=== PATIENT | female | born 2000 | race Caucasian/White ===

== ENCOUNTER 2022-06-24 10:12 | Emergency (ER) | payer OTHER, SELFPAY ==
[2022-06-24 10:25] VITALS: BP 125/79; PULSE 77; RESP 16; TEMP 37.6; O2SAT 100
--- NOTE | 2022-06-24 10:45 | ED.EYEPROB ---
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 Symptoms started 4 days ago and getting progressively worse. Symptoms started after patient's left and contacts. Reports that she does this about once a week. Falls asleep when studying for test. Patient's contacts are daily. Patient arrived wearing glasses. States painful to put contacts in. No vision changes. All systems reviewed and negative except as noted above. Related Data Home Medications Medication Instructions Recorded Confirmed levonorgestrel 0.15 mg-ethinyl 1 tablet PO DAILY 06/24/22 06/24/22 estradiol 30 mcg tablets,3 mos pack(91) Allergies Allergy/AdvReac Type Severity Reaction Status Date / Time No Known Allergies Allergy Verified 06/24/22 10:31 Review of Systems Review of Systems: CONSTITUTIONAL: Denies fever, chills, or sweats. EYES: Reports redness, discharge, photophobia both eyes. Denies vision changes. ENT: Denies rhinorrhea, congestion, sore throat, or otalgia. CARDIOVASCULAR: Denies chest pain, palpitations, or edema. RESPIRATORY: Denies cough or dyspnea. GASTROINTESTINAL: Denies abdominal pain, nausea, vomiting, or diarrhea. GENITOURINARY: Denies dysuria or hematuria. SKIN: Denies rash or itching. MUSCULOSKELETAL: Denies back pain, joint pain, or myalgia. NEUROLOGIC: Denies headache, numbness, or weakness. PSYCHIATRIC: Denies anxiety or depression. All other systems reviewed are negative, except as documented in HPI. PMFSH Comments At time of signature, agree with nursing past medical, surgical, social and family history. There is no relevant family history pertinent to the presenting complaint. Exam Narrative: GENERAL: This is a well-nourished, well-developed patient, in no apparent distress. HEAD: normocephalic, atraumatic. EYES: PERRL. sclera and conjunctiva erythematous bilaterally. cloudy drainage. +photophobia. no corneal abrasion or ulcer noted with fluorescein staining EARS: External ears normal NOSE: External nose normal NECK: Neck supple, non-tender without lymphadenopathy, masses or thyromegaly. CARDIOVASCULAR: Regular rate and rhythm without murmurs, gallops, or rubs. RESPIRATORY: Clear to auscultation. Breath sounds equal bilaterally. No wheezes, rales, or rhonchi. SKIN: warm, Dry, intact with no suspicious lesions or rash, good texture and turgor. NEURO: awake, alert, and oriented to person, place and time. There were no obvious focal neurologic abnormalities. EXTREMITIES: No joint tenderness, effusion, or edema noted. Course Course Level of Care: Express Care Visit Vital Signs Vital signs: Vital Signs Temperature 37.6 C H 06/24/22 10:25 Pulse Rate 77 06/24/22 10:25 Respiratory Rate 16 06/24/22 10:25 Blood Pressure 125/79 06/24/22 10:25 Pulse Oximetry 100 06/24/22 10:25 Oxygen Delivery Room Air 06/24/22 10:25 Temperature 37.6 C H 06/24/22 10:25 Pulse Rate 77 06/24/22 10:25 Respiratory Rate 16 06/24/22 10:25 Blood Pressure 125/79 06/24/22 10:25 Pulse Oximetry 100 06/24/22 10:25 Oxygen Delivery Room Air 06/24/22 10:25 Reviewed Procedures Other Procedure Procedure 1: Other Procedure: 1 drop tetracaine placed to each eye. 1 fluorescein strip to each eye. no corneal abrasion, corneal ulcer, FB noted with arce lamp. MDM - Eye Problem MDM Narrative Medical decision making narrative: Patient is aware of diagnosis, understands and agrees to treatment plan. Anticipatory guidance given. Patient agrees to follow-up as directed and is aware of reasons to seek care at the emergency department. Portions of this record may have been created with voice recognition software
== END 2022-06-24 10:40 | disposition home or self-care (01) ==
PROVIDERS: Emergency Provider Nurse Practitioner Family
DX: H10.33 Unspecified acute conjunctivitis, bilateral (principal)
CPT/HCPCS: 99213; A9270; G0463

== ENCOUNTER 2022-06-26 15:15 | Emergency (ER) | payer OTHER, SELFPAY ==
[2022-06-26 15:20] VITALS: BP 131/79; PULSE 114; RESP 20; TEMP 36.8; O2SAT 100
--- NOTE | 2022-06-26 15:39 | ED.URI ---
HPI - URI/Sore Throat General Chief Complaint: Upper Respiratory Infection Stated Complaint: SORE THROAT Time Seen by Provider: 06/26/22 15:30 Source: patient and RN notes reviewed Mode of arrival: ambulatory Limitations: no limitations History of Present Illness HPI Narrative: 20-year-old female presents with concern for sore. She reports she had strep throat about a month ago, was treated with antibiotics but felt like she never fully got better. She reports she does not have much of a sore throat but she has throat pain, nasal congestion, rhinorrhea, fatigue, eye redness. Reports she has been taking allergy medicine without relief. She reports she was seen here 2 days ago and diagnosed with conjunctivitis for which she started on eye drops. MD elicited complaint: sore throat, rhinorrhea and nasal congestion Related Data Home Medications Medication Instructions Recorded Confirmed levonorgestrel 0.15 mg-ethinyl 1 tablet PO DAILY 06/24/22 06/26/22 estradiol 30 mcg tablets,3 mos pack(91) Allergies Allergy/AdvReac Type Severity Reaction Status Date / Time No Known Allergies Allergy Verified 06/26/22 15:30 Review of Systems Review of Systems: CONSTITUTIONAL: Reports malaise, fatigue. Denies chills, sweats, or fever. EYES: Denies visual changes, redness, or discharge. ENT: Reports rhinorrhea, congestion, and sore throat. CARDIOVASCULAR: Denies chest pain, palpitations, or edema. RESPIRATORY: Denies cough. Denies dyspnea. GASTROINTESTINAL: Denies abdominal pain, nausea, vomiting, diarrhea SKIN: Denies rash or itching. MUSCULOSKELETAL: Reports myalgia. NEUROLOGIC: Reports headache. All systems reviewed & are unremarkable except as noted in HPI and below PMFSH Comments At time of signature, agree with nursing past medical, surgical, social and family history. There is no relevant family history pertinent to the presenting complaint Exam Narrative: GENERAL: Well-appearing, well-nourished, and in no acute distress. HEAD: Normocephalic EYES: PERRLA, conjunctivae clear ENT: Nares clear, clear discharge. Mucous membranes moist. TM pearly villar with dull light reflex bilaterally; no tragal tenderness. Oropharynx mildly erythematous without lesions. Tonsils not enlarged and without exudate, no drooling, no hoarseness, no trismus, uvula midline. NECK: Supple. No lymphadenopathy CHEST: Clear to auscultation, breath sounds equal. No wheezing, rhonchi, rales, or stridor. No respiratory distress, speaks in full sentences. HEART: Regular rate and rhythm. No murmur heard. SKIN: Warm, dry, no rash. NEURO: Alert and oriented x3. PSYCH: Normal mood and affect Course Course Emergency Course: Patient is aware of diagnosis, understands and agrees to treatment plan. Anticipatory guidance given. Patient agrees to follow-up as directed and is aware of reasons to seek care at the emergency department. Portions of this record may have been created with voice recognition software Level of Care: Express Care Visit Vital Signs Vital signs: Vital Signs Temperature 98.3 F 06/26/22 15:20 Pulse Rate 114 H 06/26/22 15:20 Respiratory Rate 20 06/26/22 15:20 Blood Pressure 131/79 06/26/22 15:20 Pulse Oximetry 100 06/26/22 15:20 Temperature 98.3 F 06/26/22 15:20 Pulse Rate 114 H 06/26/22 15:20 Respiratory Rate 20 06/26/22 15:20 Blood Pressure 131/79 06/26/22 15:20 Pulse Oximetry 100 06/26/22 15:20 Reviewed. MDM - URI/Sore Throat MDM Narrative Medical decision making narrative: Differential diagnosis considered: Cui virus, strep pharyngitis, allergic rhinitis, upper respiratory tract infection, sinusitis, rhinosinusitis, nasopharyngitis. viral pharyngitis, otitis media, otitis externa, pneumonia, bronchitis, viral cough syndrome, viral syndrome, and influenza. Exam findings show no acute concerns or changes; patient is non-toxic appearing and is in no distress. Patient is appropriate for outpa
== END 2022-06-26 15:55 | disposition home or self-care (01) ==
PROVIDERS: Emergency Provider Nurse Practitioner
DX: J32.9 Chronic sinusitis, unspecified (principal)
CPT/HCPCS: 36416; 86308; 87081; 87880; 99213; G0463